=== PATIENT | female | born 1960 | race Caucasian/White ===

== ENCOUNTER 2019-12-18 07:24 | Outpatient (REF) | payer OTHER, SELFPAY ==
[2019-12-18 08:15] LABS: MANUAL DIFF FLAG NO
[2019-12-18 08:17] LABS: Basophils Percent Auto 0.5 % (0-2); Eosinophils Absolute Auto 0.1 X10*3/uL (0.0-0.4); Eosinophils Percent Auto 2.1 % (0-4); Hematocrit 39.6 % (37-47); Hemoglobin 12.6 g/dl (12.0-16.0); Imm Gran Abs Auto 0.01 X10*3/uL (0.00-0.03); Imm Gran Pct Auto 0.3 % (0.0-0.4); Lymphocytes Absolute Auto 1.4 X10*3/uL (1.2-4.9); Lymphocytes Percent Auto 37.1 % (20-40); Mean Corpuscular HGB Conc 31.8 g/dl (31.0-35.0); Mean Corpuscular Hemoglobin 29.6 pg (27.0-33.0); Mean Platelet Volume 10.8 fL (9.4-12.3); Monocytes Absolute Auto 0.4 X10*3/uL (0.1-1.2); Monocytes Percent Auto 9.9 % (2-11); Neutrophils Absolute Auto 1.9 X10*3/uL (2.0-8.3); Neutrophils Percent Auto 50.1 % (45-73); Platelet Count 234 X10*3/uL (160-400); Red Blood Count 4.26 X10*6/uL (4.20-5.50); Red Cell Distribution Width 13.5 % (11.0-16.0); White Blood Count 3.8 X10*3/uL (4.8-10.8)
[2019-12-18 08:59] LABS: Free T4 (Free Thyroxine) 1.06 ng/dL (0.71-1.85); Thyroid Stimulating Hormone 1.78 mIU/mL (0.32-4.0); Vitamin D 25-OH Total 25.7 ng/mL (>30)
[2019-12-18 09:14] LABS: Alanine Aminotransferase 12 U/L (0-31); Albumin Level 4.4 g/dL (3.5-5.0); Alkaline Phosphatase 60 U/L (39-117); Anion Gap 13 (12-20); Aspartate Amino Transferase 18 U/L (5-31); Bilirubin Total 0.9 mg/dL (0.0-1.0); Blood Urea Nitrogen 10 mg/dL (9-16); Calcium 8.7 mg/dL (8.4-10.2); Carbon Dioxide 25 mmol/L (22-29); Chloride 104 mmol/L (96-108); Cholesterol 221 mg/dL; Estimated Glomerular Filt Rate > 60; Glucose Random 78 mg/dL (60-115); HDL Cholesterol 53 mg/dL; LDL Cholesterol Calculated 142 mg/dl; Potassium 4.4 mmol/l (3.3-5.1); Sodium 138 mmol/L (135-145); Triglycerides 134 mg/dL
[2019-12-19 09:17] LABS: Triiodothyronine T3 Total 71 ng/dL (76-181)
[2019-12-19 13:52] LABS: Lyme Abs Screen <0.90 index
== END 2019-12-18 07:25 | disposition home or self-care (01) ==
LOC: HO.LAB 07:24
PROVIDERS: Visit Provider Family Medicine
DX: R42 Dizziness and giddiness (principal)
CPT/HCPCS: 36415; 80053; 80061; 82306; 84439; 84443; 84480; 85025; 86618

== ENCOUNTER 2020-03-23 15:02 | Outpatient (REF) | payer OTHER, SELFPAY ==
--- NOTE | 2020-03-23 | US_ITS ---
EXAMINATION: US DIAGNOSTIC ULTRASOUND BREAST, LEFT CLINICAL INFORMATION: Left breast questioned density. COMPARISON: Mammography of same day and studies dating back to June 25, 2014. TECHNIQUE: Ultrasound of the breast is performed with real-time chopra scale imaging and color Doppler. FINDINGS: Targeted right breast ultrasound did not demonstrate any abnormal cystic or solid masses. No region of abnormal distal sound shadowing appreciated. Targeted left breast ultrasound demonstrated a normal-appearing 5 mm lymph node at the 2:00 position 3 cm from the nipple with normal fatty cleft and vascular hilum. No retroareolar lesion was identified on ultrasound. Results are discussed with the patient at time of visit. US/US breast LT limited IMPRESSION: No suspicious mammographic or ultrasound findings to suggest malignancy within the right breast. Stable retroareolar density on prior mammograms dating back to July 12, 2009. A second density approximately 8 2:00 position 3 cm from nipple represents a normal intramammary lymph node. ASSESSMENT: BI-RADS 2: Benign RECOMMENDATION: Routine annual mammography screening due in 12 months.
--- NOTE | 2020-03-23 15:08 | MM_ITS ---
EXAMINATION: MM DIAGNOSTIC DIGITAL BREAST TOMOSYNTHESIS, bilateral. Bilateral breast ultrasound. CLINICAL INFORMATION: Right breast lump 3:00 position The lifetime risk of breast cancer based on the Tyrer-Cuzick Model is 5.2%. COMPARISON: Mammography: September 12, 2018 and studies dating back to June 09, 2004 TECHNIQUE: Digital breast tomosynthesis is performed in both the craniocaudal and mediolateral oblique views along with computer-aided detection (CAD). Synthesized 2D images are generated from the tomosynthesis. Left breast spot compression views in mediolateral oblique and craniocaudal projections. Bilateral targeted breast ultrasound. FINDINGS: There are scattered areas of fibroglandular density (ACR BI-RADS breast composition Category b). Within the right breast no abnormal dominant mass or suspicious grouping of microcalcifications identified. No suspicious region of architectural distortion is seen. Study of the left breast demonstrates a 5 mm retroareolar well-circumscribed density which appears to have a couple of calcifications within it. On initial review of old studies calcific a not appreciated within the rounded density that had been present. Later on rereview comparing to study of July 12, 2009 and July 07, 2016 the density is stable with question of a few calcifications without change. There is also a 5 mm lobular density within the superior lateral aspect approximately 3 cm from the nipple adjacent to a blood vessel. Targeted right breast ultrasound did not demonstrate any abnormal cystic or solid masses. No region of abnormal distal sound shadowing appreciated. Targeted left breast ultrasound demonstrated a normal-appearing 5 mm lymph node at the 2:00 position 3 cm from the nipple with normal fatty cleft and vascular hilum. No retroareolar lesion was identified on ultrasound. Results are discussed with the patient at time of visit. MM/MM tomosynthesis diagnostic BI IMPRESSION: No suspicious mammographic or ultrasound findings to suggest malignancy within the right breast. Stable retroareolar density on prior mammograms dating back to July 12, 2009. A second density approximately 8 2:00 position 3 cm from nipple represents a normal intramammary lymph node. ASSESSMENT: BI-RADS 2: Benign RECOMMENDATION: Routine annual mammography screening due in 12 months. This patient's information was entered into a reminder system with a target due date for their next mammogram.
--- NOTE | 2020-03-23 15:09 | US_ITS ---
EXAMINATION: US DIAGNOSTIC ULTRASOUND BREAST, RIGHT CLINICAL INFORMATION: Lump. COMPARISON: Mammography of same day as well as mammograms dating back to June 28, 2008. TECHNIQUE: Ultrasound of the breast is performed with real-time chopra scale imaging and color Doppler. FINDINGS: Targeted right breast ultrasound did not demonstrate any abnormal cystic or solid masses. No region of abnormal distal sound shadowing appreciated. Targeted left breast ultrasound demonstrated a normal-appearing 5 mm lymph node at the 2:00 position 3 cm from the nipple with normal fatty cleft and vascular hilum. No retroareolar lesion was identified on ultrasound. Results are discussed with the patient at time of visit. US/US breast RT limited IMPRESSION: No suspicious mammographic or ultrasound findings to suggest malignancy within the right breast. Stable retroareolar density on prior mammograms dating back to July 12, 2009. A second density approximately 8 2:00 position 3 cm from nipple represents a normal intramammary lymph node. ASSESSMENT: BI-RADS 2: Benign RECOMMENDATION: Routine annual mammography screening due in 12 months.
== END 2020-03-23 15:03 | disposition home or self-care (01) ==
LOC: HO.MAMMO 15:02
PROVIDERS: Visit Provider Nurse Practitioner Family
DX: N63.15 Unspecified lump in the right breast, overlapping quadrants (principal)
CPT/HCPCS: 76642; 77062; 77066

== ENCOUNTER 2021-03-24 14:31 | Outpatient (REF) | payer OTHER, SELFPAY ==
--- NOTE | ~2021-03-24 | MM_ITS ---
EXAMINATION: MM SCREENING DIGITAL BREAST TOMOSYNTHESIS, BILATERAL CLINICAL INFORMATION: Screening. Asymptomatic. The lifetime risk of breast cancer based on the Tyrer-Cuzick Model is 7%. COMPARISON: Mammography: 03/23/2020, 09/12/2018, 08/25/2017 TECHNIQUE: Digital breast tomosynthesis is performed in both the craniocaudal and mediolateral oblique views along with computer-aided detection (CAD). Synthesized 2D images are generated from the tomosynthesis. FINDINGS: There are scattered areas of fibroglandular density (ACR BI-RADS breast composition Category b). Parenchymal pattern is similar to prior studies. There is no developing density or architectural abnormality. There is stable smooth nodularity again seen retroareolar and 3:00 left breast. The axilla and skin contours are unremarkable. No significant changes. MM/MM tomosynthesis screening BI IMPRESSION: No significant changes from prior studies. ASSESSMENT: BI-RADS 2: Benign RECOMMENDATION: Routine annual mammography screening. This patient's information was entered into a reminder system with a target due date for their next mammogram.
== END 2021-03-24 14:32 | disposition home or self-care (01) ==
LOC: HO.MAMMO 14:31
PROVIDERS: Visit Provider Nurse Practitioner Family
DX: Z12.31 Encounter for screening mammogram for malignant neoplasm of breast (principal)
CPT/HCPCS: 77063; 77067

== ENCOUNTER 2021-12-01 10:58 | Outpatient (REF) | payer OTHER, SELFPAY ==
--- NOTE | ~2021-12-01 | XR_ITS ---
EXAMINATION: XR CERVICAL SPINE CLINICAL INFORMATION: Spondylosis without myelopathy or radiculopathy. COMPARISON: None TECHNIQUE: 3 views of the cervical spine were obtained. FINDINGS: There is mild straightening of cervical lordosis. It is normal. There is grade 1 anterolisthesis C3 over C4 and C4 over C5. There is loss of C5-C6 and C6-C7 disc heights with mild ventral spondylosis. Moderate right C4-C5 and left C3-C4 facet joint arthropathy. There is no visible acute fracture, dislocation or subluxation seen. The prevertebral soft tissues are normal. XR/XR cervical spine 3V IMPRESSION: Degenerative disc changes C5-C6 and C6-C7 disc levels with mild ventral spondylosis. No visible acute fracture or dislocation seen.
== END 2021-12-01 10:59 | disposition home or self-care (01) ==
LOC: HO.XRAY 10:58
PROVIDERS: PCP Nurse Practitioner Family; Visit Provider Student in an Organized Health Care Education/Training Program
DX: M47.812 Spondylosis without myelopathy or radiculopathy, cervical region (principal)
CPT/HCPCS: 72040

== ENCOUNTER 2022-03-30 08:49 | Outpatient (REF) | payer OTHER, SELFPAY ==
--- NOTE | ~2022-03-30 | MM_ITS ---
EXAMINATION: MM SCREENING DIGITAL BREAST TOMOSYNTHESIS, BILATERAL CLINICAL INFORMATION: Screening. Asymptomatic. The lifetime risk of breast cancer based on the Tyrer-Cuzick Model is 5%. COMPARISON: Mammography: 03/24/2021, 03/23/2020, 09/12/2018 TECHNIQUE: Digital breast tomosynthesis is performed in both the craniocaudal and mediolateral oblique views along with computer-aided detection (CAD). Synthesized 2D images are generated from the tomosynthesis. FINDINGS: There are scattered areas of fibroglandular density (ACR BI-RADS breast composition Category b). There are no significant masses, abnormal calcifications, or other abnormalities. Parenchymal pattern is similar to prior studies. There is no developing density or architectural abnormality. The axilla and skin contours are unremarkable. No significant changes. MM/MM tomosynthesis screening BI IMPRESSION: No mammographic evidence of malignancy. ASSESSMENT: BI-RADS 1: Negative RECOMMENDATION: Routine annual mammography screening. This patient's information was entered into a reminder system with a target due date for their next mammogram.
== END 2022-03-30 08:50 | disposition home or self-care (01) ==
LOC: HO.MAMMO 08:49
PROVIDERS: PCP Nurse Practitioner Family; Visit Provider Nurse Practitioner Family
DX: Z12.31 Encounter for screening mammogram for malignant neoplasm of breast (principal)
CPT/HCPCS: 77063; 77067

== ENCOUNTER 2023-04-30 08:15 | Outpatient (REF) | payer MEDICARE, SELFPAY | END 2023-04-30 08:16 | disposition home or self-care (01) | LOC: HO.MAMMO 08:15 | PROVIDERS: PCP Nurse Practitioner Family; Visit Provider Nurse Practitioner Family | DX: Z12.31 Encounter for screening mammogram for malignant neoplasm of breast (principal) | CPT/HCPCS: 77063; 77067 ==

== ENCOUNTER → 2023-04-30 08:15 | Outpatient (BNV) | payer MEDICARE, SELFPAY | PROVIDERS: PCP Nurse Practitioner Family; Visit Provider Radiology Diagnostic Radiology | DX: Z12.31 Encounter for screening mammogram for malignant neoplasm of breast (principal) | CPT/HCPCS: 77063; 77067 ==

== ENCOUNTER 2023-09-17 08:14 | Outpatient (AMB) | payer MEDICARE, SELFPAY ==
--- NOTE | 2023-09-17 08:25 | MHC.OFFWIV ---
Intake Vital Signs 09/17/23 08:26 Height 5 ft 4 in Weight 131 lb BMI 22.5 BP 102/66 Blood Pressure Location Lt brachial Position Sitting Pulse 63 Pulse Source Pulse Oximeter Temp 98.1 F Temp Source Oral Pulse Oximetry (%) 98 Oxygen Delivery Method Room Air Intake Visit Reasons: Possible UTI Intake Note: pt c/o urinary urgency, frequency and unusual odor. Started Patient Tobacco Use Status: Never used Tobacco Allergies No Known Allergies [No Known Allergies*] Allergy (Verified 09/17/23 08:25) Do you need a note to return to daycare/school/sports/work: No HPI HPI Comments History of Present Illness Details 63-year-old female presents today complaining of urgency and frequency for the last 2 days. She states she has a past medical history of UTIs and these symptoms appear similar to her. Denies any medication nausea vomiting or diarrhea PFSH Social History Patient Tobacco Use Status: Never used Tobacco Review of Systems Const All systems reviewed & are unremarkable except as noted in HPI and below Physical Exam Vital Signs: Last Vital Signs Temp 98.1 F 09/17/23 08:26 Pulse 63 09/17/23 08:26 BP 102/66 09/17/23 08:26 Pulse Ox 98 09/17/23 08:26 Oxygen Delivery Method Room Air 09/17/23 08:26 BMI result Body Mass Index 22.5 Const General: healthy appearing and no acute distress Results AMB Urinalysis, Automated UA Leukoctes 0 Yeny/uL Last Edit by Edin Venegas CMA on 09/17/23 08:36 UA Nitrite Negative Last Edit by Edin Venegas CMA on 09/17/23 08:36 UA Urobilinogen 0.2 mg/dL Last Edit by Edin Venegas CMA on 09/17/23 08:36 UA Protein 0 mg/dL Last Edit by Edin Venegas CMA on 09/17/23 08:36 UA pH 6.0 Last Edit by Edin Venegas CMA on 09/17/23 08:36 UA Blood 0 Jg/uL Last Edit by Edin Venegas CMA on 09/17/23 08:36 UA Specific [place] 1.015 Last Edit by Edin Venegas CMA on 09/17/23 08:36 UA Ketone Positive Last Edit by Edin Venegas CMA on 09/17/23 08:36 UA Bilirubin 0 mg/dL Last Edit by Edin Venegas CMA on 09/17/23 08:36 UA Glucose 0 mg/dL Last Edit by Edin Venegas CMA on 09/17/23 08:36 Results Reviewed Results Reviewed: Laboratory Last Values Urine pH (Auto) 6.0 09/17/23 08:35 Specific [place] (Auto) 1.015 09/17/23 08:35 Urine Protein (Auto) 0 mg/dL 09/17/23 08:35 Glucose (UA)(Auto) 0 mg/dL 09/17/23 08:35 Urine Ketones (Auto) Positive 09/17/23 08:35 Urine Blood (Auto) 0 Jg/uL 09/17/23 08:35 Urine Nitrite (Auto) Negative 09/17/23 08:35 Urine Bilirubin (Auto) 0 mg/dL 09/17/23 08:35 Urine Urobilinogen (Auto) 0.2 mg/dL 09/17/23 08:35 Leukocyte Esterase (Auto) 0 Yeny/uL 09/17/23 08:35 Assessment & Plan Assessment & Plan (1) UTI (urinary tract infection): Code(s): N39.0 - Urinary tract infection, site not specified Plan: The patient has been put on antibiotic and will follow up with her PCP Plan See plan Orders: Orders AMB Urinalysis Automated Today Natalia Ortiz NP Z13.9 - Encounter for screening, unspecified Medications: New cephalexin 500 mg PO BID 14 caps 0RF 7 days XIOMY Mendez Coding Level of Care Code Est Pt Level 3 (03829) Diagnoses UTI (urinary tract infection) N39.0
[2023-09-17 08:26] VITALS: BP 102/66; PULSE 63; TEMP 36.7; O2SAT 98; BMI 22.5
== END 2023-09-17 10:08 | disposition home or self-care (01) ==
PROVIDERS: PCP Nurse Practitioner Family; Visit Provider Physician Assistant Medical
DX: Z13.9 Encounter for screening, unspecified (principal); N39.0 Urinary tract infection, site not specified
CPT/HCPCS: 81003; 99213

== ENCOUNTER 2024-02-20 10:16 | Outpatient (AMB) | payer MEDICARE, SELFPAY ==
--- NOTE | 2024-02-20 10:22 | MHC.PC.OV ---
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 Intake Note: new patient to establish care Meat Scrubber Required: No Allergies No Known Allergies [No Known Allergies*] Allergy (Verified 02/20/24 10:26) Tobacco use date assessed: 02/20/24 Fall risk assessment: No Falls in past year Last assessed Fall Risk: 02/20/24 Dental Screening Dental Screen Date: 02/20/24 Did you have a dental visit in the last 12 months?: Yes Did you have a dental problem in the last 6 months where you did not have access to dental care?: No Was dental information given to patient?: Patient has dentist HPI HPI Comments History of Present Illness Details This is a 63-year-old female with a past medical history of acid reflux, high cholesterol, recurrent UTIs, sleep apnea and anxiety presenting to establish care. Her medical diagnoses were abstracted from the medical records. 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 She really enjoys it. She has a very healthy lifestyle. She has a couple of concerns today. The 1st is that she has been having ?trigeminal ?pain intermittently for the past 3 months. It is predominantly on the left side of her head and face, but it can also be on the right side. She describes it as episodes of sudden, severe sharp pain that subside after she removes her glasses and rubs her head and face. She does not ever take medication for it since the episodes are brief. She is working with a chiropractor once a month. She lifts weights, but she uses light weights. Pain does not radiate down her arms and is not associated with numbness, weakness, vision changes, difficulty speaking, imbalance or other neurological concerns. She endorses issues with her bowels for the last couple of years. She has episodes of diarrhea that last a day. No blood or mucus in stools. No unexplained weight loss. No history of colon cancer in the family. She does endorse history of lymphoma (sister), leukemia (sister), bladder cancer (brother) and breast cancer (2 cousins). She does not recall when she last had a colonoscopy, but she thinks it was almost 10 years ago. She recalls in the past having a colonoscopy with polyps. She follows a gluten free diet due to sensitivity, and she tested negative for celiac disease in the past. Her mother has celiac. She has very little dairy in her diet. She does not drink coffee. She does not smoke or drink alcohol. She recalls being very sick before Thanksgiving this year with what she believes was food poisoning. She went out to eat with her friend, and they both got very sick with nausea and vomiting several hours later. Otherwise she denies nausea, vomiting or indigestion. She also wonders if this could be related to her gallbladder because she had another time that she went out to eat and felt very sick after. She tends to get Latvian fries which is not something she commonly eats at home. She also endorses malodorous urine for the past couple of days. Occasionally she has urinary urgency. She denies urgency right now. She denies hematuria, fevers, chills, flank pain. Patient says she has mammograms annually, and she is up-to-date. ROS: Constitutional: No unexplained weight loss, fever, chills, fatigue or night sweats. Eyes: No vision changes, blurry vision, double vision, eye pain, eye redness, eye discharge. ENT: No hearing loss, sneezing, congestion, runny nose or sore throat. Gastrointestinal: No anorexia, nausea, vomiting. No abdominal pain or blood in stool. Genitourinary: No dysuria, hematuria, urinary frequency. Neurologic: No dizziness, syncope, unilateral weakness, ataxia, numbness or tingling in the extremities. Hematologic/Lymphatics: No bleeding or bruising. No painful lymph nodes. Physical exam: Constitutional: Alert, in no distress. Head: Normocephalic. Eyes: Pupils are equal, round and reactive to light. Extraocular muscles intact. Neck: Supple, Full range of motion. No lymphadenopathy. No palpable thyroid masses. Respiratory: Clear to auscultation. Cardiovascular: S1 S2 regular. No murmurs. Gastrointestinal: Abdomen soft, non-tender, non-distended. Normal bowel sounds. No palpable masses. Genitourinary: No costovertebral angle tenderness. Neurologic:?Alert and oriented x 3, no focal deficits observed, CN 2-12 intact, [id number] normal, sensation equal and symmetric, strength UE and LE 5/5 bilaterally, reflexes equal and symmetric.? Normal gait.? Patient able to heel walk, toe walk and walk heel-to-toe across the floor.? No pronator drift.? Negative Romberg. Musculoskeletal: Full range of motion of the cervical spine. Extremities: Warm and well perfused. No clubbing, cyanosis or edema. Psychiatric: Normal mood and affect [facility] Medical History (Updated 02/20/24 @ 13:48 by XIOMY Hernandez) New onset of headaches Diarrhea Malodorous urine No pertinent past medical history Surgical History (Updated 02/20/24 @ 10:28 by Lizeth Sanches MA) H/O: hysterectomy Family History (Updated 02/20/24 @ 13:40 by XIOMY Hernandez) Son Substance abuse Father Dementia Sister Leukemia Brother Kidney malignant neoplasm Sister Lymphoma Unknown Breast cancer Social History (Updated 02/20/24 @ 10:28 by Lizeth Sanches MA) Household Members: Spouse Housing: House Are you a primary care management coordinator to a significant other at home: No Do you presently have visiting nurse or other home services: No Alcohol intake: current Alcohol intake frequency: a few times a week Patient Tobacco Use Status: Never used Tobacco e-Cigarette/Vaping Use: Never Used Second Hand Smoke Exposure: No Current occupational status: retired Cognitive needs: No Hearing needs: No Vision needs: Yes (wear glasses) Questionnaire PHQ-9 Over the last 2 weeks, how often have you been bothered by any of the following problems? 1. Little interest or pleasure in doing things: not at all 2. Feeling down, depressed, or hopeless: not at all 3. Trouble falling or staying asleep, or sleeping too much: not at all 4. Feeling tired or having little energy: not at all 5. Poor appetite or overeating: not at all 6. Feeling bad about yourself - or that you are a failure or have let yourself or your family down: not at all 7. Trouble concentrating on things, such as reading the newspaper or watching television: not at all 8. Moving or speaking so slowly that other people could have noticed. Or the opposite - being so fidgety or restless that you have been moving around a lot more than usual: not at all 9. Thoughts that you would be better off or of hurting yourself in some way: not at all Total score: 0 86020 - PHQ-9 Billing: Yes Source: Developed by Drs. Marcus Zafar, Sheron Garcia, Kyler Cox and colleagues, with an educational delfino from [employer]. Thrive Questionnaire Date Thrive assessed: 02/20/24 I am a: Patient What is your living situation today?: I have a steady place to live Within the past 12 months, did the food you bought not last and you didn't have the money to get more?: Never true Within the past 12 months, did you worry whether your food would run out before you got money to buy more?: Never true Do you have trouble paying for medicines?: No Do you have trouble getting transportation to medical appointments?: No Do you have trouble paying your heating and electricity bill?: No Do you have trouble taking care of your child, family member or friend?: No Do you have trouble with day-to-day activities such as bathing, preparing meals, shopping, managing finances, etc.?: No Are you currently unemployed and looking for a job?: Yes Are you interested in more education?: No Please select the resources that you would like help with: None Currently or been in a relationship where the following occur: No concerns reported THRIVE Score: 0 AUDIT C Alcohol Use Questionnaire (AUDIT-C) 1. How often do you have a drink containing alcohol?: 2-3 times a week 2. How many drinks containing alcohol do you have on a typical day when you are drinking?: 1 or 2 3. How often do you have six or more drinks on one occasion?: Never Total Score: 3 ROSEY-7 AMB Questionnaire ROSEY-7 Date ROSEY - 7 assessed: 02/20/24 Feeling nervous, anxious, or on edge: 0 = Not at all Not being able to stop or control worryin = Not at all Worrying too much about different things: 0 = Not at all Trouble relaxin = Not at all Being so restless that it is hard to sit still: 0 = Not at all Becoming easily annoyed or irritable: 0 = Not at all Feeling afraid as if something awful might happen: 0 = Not at all Total ROSEY-7 score (0-4 normal; 5-9 mild; 10-14 moderate; 15-21 severe): 0 Source: Developed by Drs. Marcus Zafar, Sheron Garcia, Kyler Cox and colleagues, with an educational delfino from [employer]. Physical exam (Primary Care) Vital Signs: Last Vital Signs Pulse 52 02/20/24 10:31 Resp 13 02/20/24 10:31 BP 118/66 02/20/24 10:31 Pulse Ox 97 02/20/24 10:31 Oxygen Delivery Method Room Air 02/20/24 10:31 BMI result Body Mass Index 23.3 Tobacco/Smoking Status: Tobacco use Status Tobacco use date assessed 02/20/24 02/20/24 10:33 Patient Tobacco Use Status Never used Tobacco 02/20/24 10:28 e-Cigarette/Vaping Use Never Used 02/20/24 10:33 PHQ-9: PHQ-9 Score PHQ-9: Total score 0 02/20/24 13:38 Thrive Assessment: Date of Thrive Assessment Date Thrive assessed 02/20/24 02/20/24 10:25 Currently or been in a relationship where the following occur: No concerns reported Coding Level of Care Code New Pt Level 4 (47552) Complex EM visit Add On G2211 Diagnoses Diarrhea R19.7 Malodorous urine R82.90 New onset of headaches R51.9 Additional Codes PHQ-9 - 40847 - PHQ-9 Billing: Yes ([id number]) Assessment & Plan Assessment & Plan (1) Diarrhea: Code(s): R19.7 - Diarrhea, unspecified Category: Medical Plan: Patient will try to keep a food journal. She has not had symptoms since December. She will continue her gluten free diet as she does endorse sensitivity with gluten and negative testing for celiac disease in the past. She will try to avoid greasy and fatty foods like Latvian fries. I ordered an abdominal ultrasound which will rule out gallbladder disease. Check labs. Referred to Gastroenterology for consideration of colonoscopy. (2) Malodorous urine: Code(s): R82.90 - Unspecified abnormal findings in urine Category: Medical Plan: Check urinalysis and culture. (3) New onset of headaches: Code(s): R51.9 - Headache, unspecified Category: Medical Plan: Check MRI of the brain. Check labs. Patient and I briefly discussed medications that could be used including gabapentin and/or neuro consult. We will obtain imaging 1st. Warning signs warranting ER evaluation reviewed with the patient. Stable hydrated. She is getting adequate sleep, and she is active. She has a high quality diet. Orders: Orders Urine Culture Today R19.7 - Diarrhea, unspecified, R39.9 - Unspecified symptoms and signs involving the genitourinary system, R82.90 - Unspecified abnormal findings in urine Lipase Today R19.7 - Diarrhea, unspecified, R82.90 - Unspecified abnormal findings in urine Erythrocyte Sedimentation Rate Today R19.7 - Diarrhea, unspecified MR head/brain wo con Today R51.9 - Headache, unspecified UA w Microscopic Today R19.7 - Diarrhea, unspecified, R39.9 - Unspecified symptoms and signs involving the genitourinary system, R82.90 - Unspecified abnormal findings in urine Complete Blood Count Auto Diff Today R19.7 - Diarrhea, unspecified, R82.90 - Unspecified abnormal findings in urine Comprehensive Met. Panel Today R19.7 - Diarrhea, unspecified, R82.90 - Unspecified abnormal findings in urine TSH reflex Free T4 Today R19.7 - Diarrhea, unspecified, R82.90 - Unspecified abnormal findings in urine Amylase Today R19.7 - Diarrhea, unspecified, R82.90 - Unspecified abnormal findings in urine US abdomen complete Today R19.7 - Diarrhea, unspecified Referrals Gastroenterology Referral R19.7 - Diarrhea, unspecified
[2024-02-20 10:31] VITALS: BP 118/66; PULSE 52; RESP 13; O2SAT 97; BMI 23.3
== END 2024-02-20 11:19 | disposition home or self-care (01) ==
PROVIDERS: PCP Nurse Practitioner Family; Visit Provider Physician Assistant Medical
DX: R19.7 Diarrhea, unspecified (principal); R82.90 Unspecified abnormal findings in urine; R51.9 Headache, unspecified

== ENCOUNTER 2024-02-20 11:31 | Outpatient (REF) | payer MEDICARE, SELFPAY ==
[2024-02-20 14:03] LABS: MANUAL DIFF FLAG NO
[2024-02-20 14:06] LABS: Appearance Urine Hazy; Color Urine Yellow; Glucose Urine UA Negative (Negative); Leukocyte Esterase Urine Negative (Negative); Nitrite Urine Positive (Negative); PH 6.5 (5.0-9.0); UMIC TRIGGER UA YES; Urine Blood Negative (Negative); Urine Ketones Negative (Negative); Urine Protein Negative (Neg-Trace)
[2024-02-20 14:10] LABS: Basophils Percent Auto 0.4 % (0-2); Eosinophils Absolute Auto 0.1 X10*3/uL (0.0-0.4); Eosinophils Percent Auto 1.4 % (0-4); Hematocrit 39.7 % (37.0-47.0); Hemoglobin 13.1 g/dl (12.0-16.0); Imm Gran Abs Auto 0.01 X10*3/uL (0.00-0.03); Imm Gran Pct Auto 0.2 % (0.0-0.4); Lymphocytes Absolute Auto 1.2 X10*3/uL (1.2-4.9); Lymphocytes Percent Auto 24.5 % (20-40); Mean Corpuscular Hemoglobin 30.3 pg (27.0-33.0); Mean Corpuscular Volume 91.9 fL (80.0-98.0); Mean Platelet Volume 11.4 fL (9.4-12.3); Monocytes Absolute Auto 0.5 X10*3/uL (0.1-1.2); Monocytes Percent Auto 9.3 % (2-11); Neutrophils Absolute Auto 3.1 x10*3/uL (2.0-8.3); Neutrophils Percent Auto 64.2 % (45-73); Platelet Count 242 X10*3/uL (160-400); Red Blood Count 4.32 X10*6/uL (4.20-5.50); Red Cell Distribution Width 13.3 % (11.0-16.0); White Blood Count 4.9 X10*3/uL (4.8-10.8)
[2024-02-20 14:11] LABS: Bacteria Urine 4+ (None Seen); Hyaline Casts Urine 0-2 /LPF (0-2); RBC Urine 0-2 /HPF (0-2); WBC Urine 0-5 /HPF (0-5)
[2024-02-20 14:34] LABS: Alanine Aminotransferase 14 U/L (0-31); Albumin Level 4.4 g/dL (3.5-5.0); Alkaline Phosphatase 53 U/L (39-117); Amylase 71 U/L (28-100); Anion Gap 12 (12-20); Aspartate Amino Transferase 24 U/L (5-31); Bilirubin Total 0.7 mg/dL (0.0-1.0); Blood Urea Nitrogen 15 mg/dL (9-16); Calcium 9.2 mg/dL (8.4-10.2); Carbon Dioxide 25 mmol/L (22-29); Chloride 106 mmol/L (96-108); Estimated Glomerular Filt Rate > 60; Glucose Random 88 mg/dL (60-115); Lipase 44 U/L (8-78); Potassium 4.2 mmol/L (3.3-5.1); Sodium 139 mmol/L (135-145); Total Protein 7.2 g/dL (6.5-8.0)
[2024-02-20 14:41] LABS: TSH reflex Free T4 0.94 uIU/mL (0.32-4.0)
[2024-02-20 14:50] LABS: Erythrocyte Sedimentation Rate 6 MM/HR (0-20)
== END 2024-02-20 11:32 | disposition home or self-care (01) ==
LOC: HO.WFDLDS 11:31
PROVIDERS: Visit Provider Physician Assistant Medical
DX: R82.90 Unspecified abnormal findings in urine (principal); R19.7 Diarrhea, unspecified; R39.9 Unspecified symptoms and signs involving the genitourinary system; R51.9 Headache, unspecified
CPT/HCPCS: 36415; 80053; 81001; 82150; 83690; 84443; 85025; 85652; 87086; 87088; 87186; 96127; 99202

== ENCOUNTER 2024-04-16 11:38 | Outpatient (AMB) | payer MEDICARE, SELFPAY ==
--- NOTE | 2024-04-16 11:40 | A.OFFPC_ITS ---
Vital Signs 04/16/24 11:43 Height 5 ft 4 in Weight 140 lb BMI 24.0 BP 118/66 Blood Pressure Location Lt brachial Position Sitting Respiration 12 Pulse 62 Pulse Source Pulse Oximeter Temp 97.1 F Temp Source Oral Pulse Oximetry (%) 98 Oxygen Delivery Method Room Air Intake Visit Reasons: follow up head pain and GI symptoms Intake Note: follow up on headaches and GI sx Procurement Intern Required: No Allergies No Known Allergies [No Known Allergies*] Allergy (Verified 04/16/24 11:41) Tobacco use date assessed: 04/16/24 Fall risk assessment: No Falls in past year Last assessed Fall Risk: 04/16/24 Dental Screening Dental Screen Date: 04/16/24 Did you have a dental visit in the last 12 months?: Yes Did you have a dental problem in the last 6 months where you did not have access to dental care?: No Was dental information given to patient?: Patient has dentist HPI HPI Comments History of Present Illness Details This is a 63-year-old female with a past medical history of acid reflux, high cholesterol, recurrent UTIs, sleep apnea and anxiety presenting for follow up. 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 She really enjoys it. She has a very healthy lifestyle. Since I saw her she saw [facility]. She reports they ordered labs and stool studies, and she has an endoscopy and colonoscopy scheduled on 06/02/2024 for evaluation of intermittent diarrhea and occasional globus sensation. I will request the records from [facility]. She denies change in symptoms since her last evaluation. She was not called to schedule the ultrasound at [facility], and we did fax the order. I provided her with a phone number to call [facility] to schedule this. Today we also discussed again the ?trigeminal ?pain she has intermittently for the past 3 months. It is predominantly on the left side of her head and face, but it can also be on the right side. She describes it as episodes of sudden, severe sharp pain that subside after she removes her glasses and rubs her head and face. She does not ever take medication for it since the episodes are brief. This happens once per week. Pain does not radiate down her arms and is not associated with numbness, weakness, vision changes, difficulty speaking, imbalance or other neurological concerns. She completed lab work. MRI was ordered, but she was not contacted to schedule by [facility]. This order was faxed so she is going to contact [facility] to schedule it. Patient also says she has been working out her abdominal muscles the last few days, and she felt mild discomfort on the right side of her lower abdomen yesterday, and today she has some on the left, but it seems to be with positional movements. She was worried about appendicitis, but she just wants to make sure she is okay. No fevers, chills, flank pain, nausea, vomiting, diarrhea except as noted above (nonetheless few days or today). ROS: Constitutional: No unexplained weight loss, fever, chills, fatigue or night sweats. Eyes: No vision changes, blurry vision, double vision, eye pain, eye redness, eye discharge. ENT: No hearing loss, sneezing, congestion, runny nose or sore throat. Gastrointestinal: No anorexia, nausea, vomiting. No blood in stools. +reflux and she is taking a licorice supplement per Gastroenterology. Genitourinary: No dysuria, hematuria, urinary frequency. No flank pain. Neurologic: No dizziness, syncope, unilateral weakness, ataxia, numbness or tingling in the extremities. Hematologic/Lymphatics: No bleeding or bruising. No painful lymph nodes. Physical exam: Constitutional: Alert, in no distress. Head: Normocephalic. Respiratory: Clear to auscultation. Cardiovascular: S1 S2 regular. No murmurs. Gastrointestinal: Abdomen soft, non-tender, non-distended. Normal bowel sounds. No palpable masses. No rebound or guarding. No referred pain. No palpable hernia. Genitourinary: No costovertebral angle tenderness. Neurologic:?Alert and oriented x 3. No focal deficits observed. Extremities: Warm and well perfused. No clubbing, cyanosis or edema. Psychiatric: Normal mood and affect [facility] Medical History (Updated 04/16/24 @ 13:42 by XIOMY Hernandez) Abdominal muscle strain New onset of headaches Diarrhea Malodorous urine No pertinent past medical history Surgical History (Updated 02/20/24 @ 10:28 by Lizeth Sanches MA) H/O: hysterectomy Family History (Updated 02/20/24 @ 13:40 by XIOMY Hernandez) Son Substance abuse Father Dementia Sister Leukemia Brother Kidney malignant neoplasm Sister Lymphoma Unknown Breast cancer Social History (Updated 02/20/24 @ 10:28 by Lizeth Sanches MA) Household Members: Spouse Both parents involved: No Caregiver staying overnight: No Housing: House Are you a primary social worker palliative care to a significant other at home: No Do you presently have visiting nurse or other home services: No 75 years or older and lives alone: No Alcohol intake: current Alcohol intake frequency: a few times a week Patient Tobacco Use Status: Never used Tobacco e-Cigarette/Vaping Use: Never Used Second Hand Smoke Exposure: No Current occupational status: retired Cognitive needs: No Hearing needs: No Vision needs: Yes (wear glasses) Questionnaire PHQ-9 Over the last 2 weeks, how often have you been bothered by any of the following problems? 54075 - PHQ-9 Billing: Patient declined-do not bill Source: Developed by Drs. Marcus Zafar, Sheron Garcia, Kyler Cox and colleagues, with an educational delfino from [employer]. Thrive Questionnaire Date Thrive assessed: 04/16/24 I am a: Patient What is your living situation today?: I have a steady place to live Within the past 12 months, did the food you bought not last and you didn't have the money to get more?: Never true Within the past 12 months, did you worry whether your food would run out before you got money to buy more?: Never true Do you have trouble paying for medicines?: No Do you have trouble getting transportation to medical appointments?: No Do you have trouble paying your heating and electricity bill?: No Do you have trouble taking care of your child, family member or friend?: No Do you have trouble with day-to-day activities such as bathing, preparing meals, shopping, managing finances, etc.?: No Are you currently unemployed and looking for a job?: Yes Are you interested in more education?: No Please select the resources that you would like help with: None Currently or been in a relationship where the following occur: No concerns reported THRIVE Score: 0 ROSEY-7 AMB Questionnaire ROSEY-7 Date ROSEY - 7 assessed: 02/20/24 Source: Developed by Drs. Marcus Zafar, Sheron Garcia, Kyler Cox and colleagues, with an educational delfino from [employer]. Physical exam (Primary Care) Vital Signs: Last Vital Signs Temp 97.1 F 04/16/24 11:43 Pulse 62 04/16/24 11:43 Resp 12 04/16/24 11:43 BP 118/66 04/16/24 11:43 Pulse Ox 98 04/16/24 11:43 Oxygen Delivery Method Room Air 04/16/24 11:43 BMI result Body Mass Index 24.0 Tobacco/Smoking Status: Tobacco use Status Tobacco use date assessed 04/16/24 04/16/24 11:45 Patient Tobacco Use Status Never used Tobacco 04/16/24 11:45 e-Cigarette/Vaping Use Never Used 04/16/24 11:45 Thrive Assessment: Date of Thrive Assessment Date Thrive assessed 04/16/24 04/16/24 11:45 Currently or been in a relationship where the following occur: No concerns reported Coding Level of Care Code Est Pt Level 4 (20420) Complex EM visit Add On G2211 Diagnoses Diarrhea R19.7 New onset of headaches R51.9 Abdominal muscle strain S39.011A Assessment & Plan Assessment & Plan (1) Diarrhea: Code(s): R19.7 - Diarrhea, unspecified Category: Medical Plan: She will have the abdominal ultrasound completed. We will request diagnostics and note from [facility]. She has an endoscopy and colonoscopy scheduled in May. (2) New onset of headaches: Code(s): R51.9 - Headache, unspecified Category: Medical Plan: Check MRI of the brain. Lab evaluation benign. Patient and I briefly discussed medications that could be used including gabapentin and/or neuro consult. We will obtain imaging 1st. Warning signs warranting ER evaluation reviewed with t aster patient. Stable hydrated. She is getting adequate sleep, and she is active. She has a high quality diet. (3) Abdominal muscle strain: Code(s): S39.011A - Strain of muscle, fascia and tendon of abdomen, initial encounter Category: Medical Plan: The patient is afebrile. Her abdominal exam is reassuring. She reports no associated GI symptoms with the lower abdominal discomfort which began after doing abdominal exercises. Suspect she has a mild abdominal wall muscle strain. Recommended ice, heat and rest. Warning signs warranting follow up and ER evaluation reviewed.
[2024-04-16 11:43] VITALS: BP 118/66; PULSE 62; RESP 12; TEMP 36.2; O2SAT 98; BMI 24.0
== END 2024-04-16 12:36 | disposition home or self-care (01) ==
PROVIDERS: PCP Physician Assistant Medical; Visit Provider Physician Assistant Medical
DX: R19.7 Diarrhea, unspecified (principal); R51.9 Headache, unspecified; S39.011A Strain of muscle, fascia and tendon of abdomen, initial encounter

== ENCOUNTER → 2024-04-16 11:38 | Outpatient (BNVA) | payer MEDICARE, SELFPAY | PROVIDERS: PCP Physician Assistant Medical; Visit Provider Physician Assistant Medical | DX: R19.7 Diarrhea, unspecified (principal); R51.9 Headache, unspecified; S39.011A Strain of muscle, fascia and tendon of abdomen, initial encounter; X58.XXXA Exposure to other specified factors, initial encounter; Y93.9 Activity, unspecified; Y92.9 Unspecified place or not applicable; Y99.9 Unspecified external cause status | CPT/HCPCS: 99212 ==

== ENCOUNTER 2024-05-05 08:39 | Outpatient (REF) | payer MEDICARE, SELFPAY | END 2024-05-05 08:40 | disposition home or self-care (01) | LOC: HO.MAMMO 08:39 | PROVIDERS: PCP Physician Assistant Medical; Visit Provider Nurse Practitioner Family | DX: Z12.31 Encounter for screening mammogram for malignant neoplasm of breast (principal) | CPT/HCPCS: 77063; 77067 ==

== ENCOUNTER → 2024-05-05 08:45 | Outpatient (BNV) | payer MEDICARE, SELFPAY | PROVIDERS: PCP Physician Assistant Medical; Visit Provider Internal Medicine | DX: Z12.31 Encounter for screening mammogram for malignant neoplasm of breast (principal) | CPT/HCPCS: 77063; 77067 ==

== ENCOUNTER 2024-05-31 14:30 | Outpatient (REF) | payer MEDICARE, SELFPAY ==
--- NOTE | ~2024-05-31 | MR_ITS ---
EXAMINATION: MR BRAIN WITHOUT IV CONTRAST HISTORY: R51.9 - Headache, unspecified TECHNIQUE: Sagittal T1, and axial T1, FLAIR, T2, gradient echo, and diffusion weighted MR images of the brain were obtained. COMPARISON: None FINDINGS: There are scattered periventricular and subcortical white matter hyperintensities on the FLAIR and T2-weighted images which are nonspecific, but often seen in the setting of small vessel ischemic disease. The brain parenchyma is otherwise unremarkable, demonstrating normal chopra/white differentiation. There is no mass effect or midline shift. The ventricular system is normal in size and configuration. No intra or extra-axial fluid collections are identified. There are no foci of restricted diffusion. Normal vascular flow voids are noted in the basilar and carotid arteries. The visualized paranasal sinuses are clear. MR/MR head/brain wo con IMPRESSION: Findings are consistent with small vessel ischemic disease of the white matter, as described. No evidence of acute infarct, intracranial hemorrhage, or mass effect. Electronically signed by: Marcus Sol MD 06/01/2024 07:48 AM EDT
--- OUTSIDE RECORDS SUMMARY | 2024-05-31 14:34 | XMS_ITS | Patient Health Record ---
Author Organization 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 Name Role Phone FELIPE ELENA PA-C Primary Care Provider Marcus Gordon Unavailable [phone] Allergies Allergen (clinical drug ingredient) Drug/Non Drug Allergy documented on EMR Reaction Allergy Type Onset Date Status Egg-derived Products Unknown Drug Allergy Active Reason For Referral No Information Medications Medication SIG (Take, Route, Fr equency, Duration) Notes Start Date End Date Status Vitamin B12 Active Probiotic prn Active Zinc Active Magnesium Active Lysine Active [place] 3-6-9 Fatty Acids Active Vitamin C Active Social History Tobacco Use: Social History Observation Description Date Details (start date - stop date) Never Smoker NA - NA Tobacco Control (Standard) Question Answer Notes Tobacco use: Nonsmoker AUDIT-C (Standard) Question Answer Notes Did you have a drink contain ing alcohol in the past year? Yes How often did you have a dri nk containing alcohol in the past year? Never (0 point) How many drinks did you have on a typical day when you were drinking in the past year? 1 or 2 drinks (0 point) How often did you have six o r more drinks on one occasion in the past year? Never (0 point) Points 0 Interpretation Negative Section Notes: Nonsmoker; no sig alcohol Occ. 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 Problems Problem Type SNOMED Code ICD Code Onset Dates Problem Status W/U Status Risk Notes Problem Colon cancer screening (002536961) Colon cancer screening (Z12.11) Active confirmed Problem Diarrhea (17840905) Diarrhea (R19.7) Active confirmed Problem Dysphagia (32054496) Dysphagia (R13.10) Active confirmed Vital Signs Blood pressure diastolic 11 mm Hg 05/26/2024 Height 64 in 05/26/2024 Blood pressure systolic 111 mm Hg 05/26/2024 Weight 137 lbs 05/26/2024 BMI 23.51 kg/m2 05/26/2024 Procedures Procedure Date Ordered Date Performed Result Body Sit e UPPER GI ENDOSCOPY BALLOOON DILATION OF ESOPH 05/26/2024 N/A COLONOSCOPY 05/26/2024 N/A Encounters Encounter Location Date Provider Diagnosis [facility] [address] [place] [address] 05/26/2024 Marcus Franks Colon cancer screening Z12.11 ; Diarrhea R19.7 and Dysphagia R13.10 Assessments Encounter Date Diagnosis (ICD Code) Assessment Notes Treatment Notes Treatment Clinical Notes Section Notes 05/26/2024 Colon cancer screening (ICD-10 - Z12.11) Overall, Gustavo appears very well, based on her clinical history and excellent clinical appearance, I do not think she has any significant GI issues occurring such as inflammatory bowel disease, esophagitis, esophageal stricture, or celiac disease. However, given her age, her excellent clinical appearance, and her last colonoscopy being well over 10 years ago, I did recommend a colonoscopy for further screening purposes. We did review the rationale for that in regard to colon cancer prevention. I advised her that I can obtain biopsies at that time to rule out any underlying microscopic colitis. On the same day she will undergo an upper endoscopy for evaluation of her occasional and transient episodes of dysphagia. I advised her that these episodes seem consistent with some esophageal spasm in relation to eating quickly and some large bites of food. I did advise her to eat slowly and carefully. I did advise her that if I happen to find an esophageal ring or stricture then I can perform balloon dilation at that time if need be. I will also obtain duodenal biopsies given her family of celiac disease in her mother and her occasional diarrhea. Full consent has been obtained from her for both procedures, including risks of bleeding and perforation. The procedures will be done with monitored anesthesia care. Thank you again for allowing me to participate in Gustavo's care. I shall continue to keep you advised of her progress. 05/26/2024 Diarrhea (ICD-10 - R19.7) Overall, Gustavo appears very well, based on her clinical history and excellent clinical appearance, I do not think she has any significant GI issues occurring such as inflammatory bowel disease, esophagitis, esophageal stricture, or celiac disease. However, given her age, her excellent clinical appearance, and her last colonoscopy being well over 10 years ago, I did recommend a colonoscopy for further screening purposes. We did review the rationale for that in regard to colon cancer prevention. I advised her that I can obtain biopsies at that time to rule out any underlying microscopic colitis. On the same day she will undergo an upper endoscopy for evaluation of her occasional and transient episodes of dysphagia. I advised her that these episodes seem consistent with some esophageal spasm in relation to eating quickly and some large bites of food. I did advise her to eat slowly and carefully. I did advise her that if I happen to find an esophageal ring or stricture then I can perform balloon dilation at that time if need be. I will also obtain duodenal biopsies given her family of celiac disease in her mother and her occasional diarrhea. Full consent has been obtained from her for both procedures, including risks of bleeding and perforation. The procedures will be done with monitored anesthesia care. Thank you again for allowing me to participate in uGstavo's care. I shall continue to keep you advised of her progress. 05/26/2024 Dysphagia (ICD-10 - R13.10) Eat slowly Overall, Gustavo appears very well, based on her clinical history and excellent clinical appearance, I do not think she has any significant GI issues occurring such as inflammatory bowel disease, esophagitis, esophageal stricture, or celiac disease. However, given her age, her excellent clinical appearance, and her last colonoscopy being well over 10 years ago, I did recommend a colonoscopy for further screening purposes. We did review the rationale for that in regard to colon cancer prevention. I advised her that I can obtain biopsies at that time to rule out any underlying microscopic colitis. On the same day she will undergo an upper endoscopy for evaluation of her occasional and transient episodes of dysphagia. I advised her that these episodes seem consistent with some esophageal spasm in relation to eating quickly and some large bites of food. I did advise her to eat slowly and carefully. I did advise her that if I happen to find an esophageal ring or stricture then I can perform balloon dilation at that time if need be. I will also obtain duodenal biopsies given her family of celiac disease in her mother and her occasional diarrhea. Full consent has been obtained from her for both procedures, including risks of bleeding and perforation. The procedures will be done with monitored anesthesia care. Thank you again for allowing me to participate in Gustavo's care. I shall continue to keep you advised of her progress. Plan Of Treatment Pending Test Test Name Order Date UPPER GI ENDOSCOPY BALLOOON DILATION OF ESOPH 05/26/2024 COLONOSCOPY 05/26/2024 Next Appt Details Provider Name:Marcus Franks , 08/19/2024 11:30:00 AM, [address] [place] [address] , [place], [place], [phone], Insurance Providers Payer Name Payer Address Payer Phone Subscriber Number Group Number Insured Name Patient Relationship to Insured Coverage Start Date Coverage End Date [employer] (No Referra l) [address] [place], [place] [phone] [id number] PCP GUSTAVO MOSQUERA Self - patient is the insured Medical (General) History Medical History History ICD Code Denies IA,DM,CVA,Lung disease,renal dise ase Colonoscopy 2008 was reportedly negative EGD 2008 was reportedly negative Surgical History Surgery Date(Month/Year) Hysterectomy 8 years ago
== END 2024-05-31 14:31 | disposition home or self-care (01) ==
LOC: HO.MRI 14:30
PROVIDERS: PCP Physician Assistant Medical; Visit Provider Physician Assistant Medical
DX: R51.9 Headache, unspecified (principal)
CPT/HCPCS: 70551

== ENCOUNTER → 2024-05-31 14:38 | Outpatient (BNV) | payer MEDICARE, SELFPAY | PROVIDERS: PCP Physician Assistant Medical; Visit Provider Radiology Diagnostic Radiology | DX: I67.82 Cerebral ischemia (principal) | CPT/HCPCS: 70551 ==

== ENCOUNTER 2024-06-17 07:56 | Outpatient (REF) | payer MEDICARE, SELFPAY ==
[2024-06-17 09:26] LABS: Cholesterol 208 mg/dL (<200); HDL Cholesterol 53 mg/dL (>40); LDL Cholesterol Calculated 141 mg/dL (<100); Triglycerides 73 mg/dL (<150)
== END 2024-06-17 07:57 | disposition home or self-care (01) ==
LOC: HO.LAB 07:56
PROVIDERS: PCP Physician Assistant Medical; Visit Provider Physician Assistant Medical
DX: E78.5 Hyperlipidemia, unspecified (principal)
CPT/HCPCS: 36415; 80061

== ENCOUNTER 2024-08-19 08:25 | Day surgery (SDC) | payer MEDICARE, SELFPAY ==
--- OUTSIDE RECORDS SUMMARY | 2024-07-23 08:32 | XMS_ITS ---
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 Name Role Phone FELIPE ELENA PA-C Primary Care Provider Marcus Gordon Unavailable [phone] REASON FOR VISIT PRIOR AUTHORIZATION Encounters Encounter Location Date Provider Diagnosis [facility] [address] [place] [phone] 07/20/2024 Marcus Franks Plan Of Treatment Next Appt Details Provider Name:Marcus Franks , 08/19/2024 11:30:00 AM, [address] [place] [address] , [place], [place], [phone], Progress Notes * JORGE LUIS MOSQUERAOB:1960 ([age] yo F)Acc No.[id number]:07/20/2024 Patient:?GUSTAVO MOSQUERA :1960???Age:64 Y???Sex:Female Address:[facility] [place] [address] * true * Date:? Generated for Printi chelo/Kike/eTransmitting on:?07/23/2024 08:32 AM EDT
--- NOTE | 2024-08-17 14:18 | P.CONAN_ITS ---
Documented by User: Loraine Hernandez NP 08/17/24 14:18 HPI - Anesthesia Eval Consult details Narrative: 64yo F for Upper Endoscopy with Balloon Dilitation, Colonoscopy PMFSH Active Problems Active Problems: All Active Problems Abdominal muscle strain (Acute) New onset of headaches (Acute) Diarrhea (Acute) Malodorous urine (Acute) UTI (urinary tract infection) (Acute) Past Medical History Medical History Abdominal muscle strain New onset of headaches Diarrhea Family History Family History Son Substance abuse Father Dementia Sister Leukemia Brother Kidney malignant neoplasm Sister Lymphoma Unknown Breast cancer Surgical History Surgical History History of esophagogastroduodenoscopy (EGD) H/O colonoscopy H/O: hysterectomy Social History Social History Household Members: Spouse Housing: House Are you a primary client care coordinator to a significant other at home: No Do you presently have visiting nurse or other home services: No Alcohol intake: current Alcohol intake frequency: a few times a week Patient Tobacco Use Status: Never used Tobacco e-Cigarette/Vaping Use: Never Used Second Hand Smoke Exposure: No Use of substances other than those prescribed or required for medical reasons: No Have you been hit, kicked, punched, or otherwise hurt by someone within the past year? If so, by whom?: No Are you DNR?: No Advance Directives: No Advance Directives Information Provided: Yes Advance Directives on File: No Patient : No Current occupational status: retired Cognitive needs: No Hearing needs: No Vision needs: Yes (wear glasses) Meds Allergies Allergy/AdvReac Type Severity Reaction Status Date / Time No Known Allergies (No Known Allergy Verified 04/16/24 11:41 Allergies*) Home Medications ?Medication ?Instructions ?Recorded ?Confirmed ?Last Taken ?Type No Known Home Meds 08/17/24 08/17/24 Un known History Assessment and Plan Assessment Anesthesia Assessment: Chart Reviewed Documented by User: Alana Betancourt MD 08/19/24 08:51 PMFSH Past Medical History Medical History Abdominal muscle strain New onset of headaches Diarrhea Family History Family History Son Substance abuse Father Dementia Sister Leukemia Brother Kidney malignant neoplasm Sister Lymphoma Unknown Breast cancer Family history of problems with anesthesia: No Surgical History Surgical History History of esophagogastroduodenoscopy (EGD) H/O colonoscopy H/O: hysterectomy History of Problems with Anesthesia: No Social History Social History Household Members: Spouse Housing: House Are you a primary client care coordinator to a significant other at home: No Do you presently have visiting nurse or other home services: No Alcohol intake: current Alcohol intake frequency: a few times a week Patient Tobacco Use Status: Never used Tobacco e-Cigarette/Vaping Use: Never Used Second Hand Smoke Exposure: No Use of substances other than those prescribed or required for medical reasons: No Have you been hit, kicked, punched, or otherwise hurt by someone within the past year? If so, by whom?: No Are you DNR?: No Advance Directives: No Advance Directives Information Provided: Yes Advance Directives on File: No Patient : No Current occupational status: retired Cognitive needs: No Hearing needs: No Vision needs: Yes (wear glasses) Meds Allergies Allergy/AdvReac Type Severity Reaction Status Date / Time No Known Allergies (No Known Allergy Verified 04/16/24 11:41 Allergies*) Home Medications ?Medication ?Instructions ?Recorded ?Confirmed ?Last Taken ?Type No Known Home Meds 08/17/24 08/17/24 Un known History Exam Airway Mallampati Class: II TM Dist: >3cm Neck ROM: Full Heart: rrr Lungs: cta Assessment and Plan Assessment Anesthesia Assessment: Anesthesia Plan Discussed Final Anesthetic Review Family History of Problems with Anesthesia: No History of Problems with Anesthesia: No NPO: Yes ASA Class: II Final Preanesthetic Review: No Changes in Pt Med Stat, Meds/Allgs Chart Reviewed, Consent Obtained/Reviewed and Anes Risks/Benef Reviewed Patient Risk: Low Procedure Risk: Low Anesthetic Plan Anesthetic Plan: MAC: Disposition: Standard PACU
[2024-08-17 14:35] VITALS: BMI 23.5
[2024-08-19 08:32] VITALS: BMI 22.6
[2024-08-19 08:51] VITALS: BP 106/54; PULSE 65; RESP 16; TEMP 36.4; O2SAT 98
[2024-08-19] MEDS: Lactated Ringers 1,000 ML 100 ML IVCONT (09:04)
[2024-08-19 10:53] VITALS: BP 98/55; PULSE 54; RESP 20; TEMP 36.3; O2SAT 100
[2024-08-19 11:00] VITALS: BP 91/55; PULSE 56; RESP 18; O2SAT 98
--- NOTE | 2024-08-19 11:02 | P.BOP_ITS ---
Brief Operative Note Date of Service: 08/19/24 Pre-op diagnosis: Dysphagia, Screening Post-op diagnosis: other (Esophageal stricture, Hiatal hernia, Colon polyps) Procedure: EGD with bx and Balloon dilation with 18 to 19 mm balloon, and Colonoscopy to the cecum and TI with hot snare polypectomies x 3, and biopsies Surgeon: Marcus Franks MD Anesthesia: MAC Was an Regulatory Submissions Associate used for this Procedure?: No Estimated blood loss (mL): 2.0 Pathology: other (A. Descending duodenum B. Transverse colon polyps x 2 C. Ascending colon polyp D. Ascending colon E. Descending colon F. Polyp at 30cm) Condition: stable Disposition: PACU
[2024-08-19 11:15] VITALS: BP 104/59; PULSE 53; RESP 16; TEMP 36.1; O2SAT 98
--- NOTE | 2024-08-19 11:26 | OP_ITS ---
DATE OF SERVICE: 08/19/2024 SURGEON: Marcus Franks MD INDICATIONS: The patient presents for evaluation of gastroesophageal reflux, dysphagia, family history of celiac disease, intermittent diarrhea, and colorectal cancer screening. Full consent has been obtained from her for both procedures, including risks of bleeding and perforation. PREOPERATIVE DIAGNOSIS: POSTOPERATIVE DIAGNOSIS: PROCEDURE PERFORMED: Esophagogastroduodenoscopy with biopsies and balloon dilation, and colonoscopy to the cecum and terminal ileum with hot snare polypectomies and biopsies. ESTIMATED BLOOD LOSS: COMPLICATIONS: ANESTHESIA: Medication used, monitored anesthesia care. ASSISTANTS: SPECIMENS: PREOPERATIVE DIAGNOSES: Gastroesophageal reflux, dysphagia, family history of celiac disease, colon cancer screening. POSTOPERATIVE DIAGNOSES: Gastroesophageal reflux, dysphagia, family history of celiac disease, colon cancer screening, hiatal hernia, esophageal stricture, gastroesophageal reflux, colon polyps, diverticulosis, rule out microscopic colitis, rule out celiac disease, internal hemorrhoids. DESCRIPTION OF PROCEDURE: The patient was placed in the left lateral decubitus position. The Olympus video gastroscope was passed in the posterior oropharynx and upper esophagus under direct vision. The scope was passed slowly into the distal esophagus. The gastroesophageal junction appeared at 34 cm. At this level was what appeared to be a mild fibrotic stricture with 1 area of a linear area of erythema and slight erosions extending about 1 or 2 cm above the EG junction. There was no mass, ulceration, nor any gross evidence of Langley's mucosa. The scope did pass the stricture easily. There was a moderate-sized hiatal hernia. The scope was advanced to the pylorus, and the duodenum was cannulated to the descending portion. The duodenum including the bulb appeared normal without mass or ulceration. Multiple biopsies were obtained in the descending duodenum. The scope was withdrawn back in the stomach. The gastric antrum and body appeared normal with good peristalsis. The scope was retroflexed visualizing the proximal stomach carefully, which appeared normal, without any sign of mass or ulceration. The scope was straightened and withdrawn back to the esophagus. Given her symptoms and these findings, I did use a [employer] incremental dilating balloon to dilate the esophageal stricture from 18 to 19 mm between 30 and 60 seconds each of the recommended pressure. Post- dilation, there was good disruption of the stricture and heme. The scope was withdrawn through the remainder of the esophagus, which appeared normal. The scope was withdrawn from the patient. She was turned around for the colonoscopy. The digital rectal exam revealed no abnormalities. The [employer] 28 video pediatric colonoscope was entered into the rectum and advanced easily to the cecum. Once in the cecum, I did identify normal-appearing cecal pouch with appendiceal orifice and a normal-appearing ileocecal valve. The terminal ileum was cannulated and appeared normal. Scope was withdrawn back in the colon. The entire cecum and ileocecal valve appeared normal. The scope was slowly withdrawn assessing all mucosal surfaces carefully. Preparation was excellent. In the proximal ascending colon and in the transverse colon were a total of 3 polyps, 1 in the ascending colon and 2 in the transverse colon. These were all about 8 to 10 mm in size and were all removed by hot snare polypectomies and recovered by suction. All of the polypectomy sites appeared clean, without any sign of residual polyp nor bleeding. I did not visualize any sign of other polyps, colitis, nor angiodysplasia. Random biopsies were obtained in the ascending and descending colon. There was a mild to moderate amount of sigmoid diverticulosis. In the rectum, scope was retroflexed visualizing some small internal hemorrhoids, but no other pathology. The rectal mucosa appeared normal. The scope was straightened and withdrawn from the patient. She tolerated both procedures well and was returned to the recovery area in stable condition. IMPRESSION: 1. Moderate-sized hiatal hernia with associated esophageal stricture and reflux. 2. Rule out celiac disease. 3. Colon polyps. 4. Diverticulosis. 5. Rule out microscopic colitis. 6. Internal hemorrhoids. PLAN: The results of the pathology will be checked. I would recommend a repeat colonoscopy in 5 years for further screening. She was advised not to use any aspirin and NSAIDs for least 1 week. In regard to the upper endoscopy findings, I am going to start her on omeprazole 20 mg daily, both for the reflux symptoms and the finding of the stricture. She will be seen in followup later in the year as well. MD KEVIN Huerta/PATRICIA / [id number] MTDD
== END 2024-08-19 12:16 | disposition home or self-care (01) ==
PROVIDERS: PCP Physician Assistant Medical; Visit Provider Internal Medicine
PROC: (CPT 45385; principal; 2024-08-19 09:30)
PROC: 0DJD8ZZ Inspection of Lower Intestinal Tract, Via Natural or Artificial Opening Endoscopic (ICD-10-PCS; CPT 45378; 2024-08-19 09:30)
DX: Z12.11 Encounter for screening for malignant neoplasm of colon (principal); D12.2 Benign neoplasm of ascending colon; D12.3 Benign neoplasm of transverse colon; D12.5 Benign neoplasm of sigmoid colon; K57.30 Diverticulosis of large intestine without perforation or abscess without bleeding; K64.8 Other hemorrhoids; R19.7 Diarrhea, unspecified; R13.10 Dysphagia, unspecified; K21.9 Gastro-esophageal reflux disease without esophagitis; Z83.79 Family history of other diseases of the digestive system; K22.2 Esophageal obstruction; K44.9 Diaphragmatic hernia without obstruction or gangrene; Z79.899 Other long term (current) drug therapy
CPT/HCPCS: 45385; 45380; 43249; 43239; 88305; C1726; J2704